=== PATIENT | female | born 1970 | race Hispanic/Latino ===

== ENCOUNTER 2021-07-05 23:22 | Emergency (ER) | payer OTHER ==
[~2021-07-05] VITALS: Ht 154.9 cm; Wt 66.2 kg
[2021-07-05] MEDS ORDERED: LIDOCAINE HCL 1% LOCAL INJ 20 ML VIAL INJ ONE (23:45)
[2021-07-06] MEDS ORDERED: LIDOCAINE HCL 1% LOCAL INJ 20 ML VIAL ONE (00:04)
== END 2021-07-06 00:10 | disposition home or self-care (01) ==
LOC: ER 23:47
DX: S01.112A Laceration without foreign body of left eyelid and periocular area, initial encounter (principal); W22.09XA Striking against other stationary object, initial encounter; Y93.01 Activity, walking, marching and hiking; Y92.008 Other place in unspecified non-institutional (private) residence as the place of occurrence of the external cause; I10 Essential (primary) hypertension
CPT/HCPCS: 12011; 99283; J2001

== ENCOUNTER 2025-01-31 12:31 | Emergency (ER) | payer OTHER ==
[~2025-01-31] VITALS: Ht 154.9 cm; Wt 68.1 kg
[~2025-01-31 12:31] MED LIST: CARAFATE1 GM PO; MULTI-VITAMIN1 EACH PO
[2025-01-31] MEDS: Morphine 4mg INJECTION 4 MG/ML INJ IM ONE (13:05)
[2025-01-31 14:04] VITALS: PULSE 70; RESP 14; TEMP 98.6; O2SAT 96
== END 2025-01-31 15:00 | disposition home or self-care (01) ==
LOC: FSED 12:36
DX: M79.601 Pain in right arm (principal); I80.8 Phlebitis and thrombophlebitis of other sites; M79.89 Other specified soft tissue disorders; I10 Essential (primary) hypertension
CPT/HCPCS: 93971; 96372; 99284; J2270